=== PATIENT | male | born 1995 | race American Indian/Alaskan Native ===

== ENCOUNTER 2017-01-18 14:15 | Emergency (ER) | payer OTHER ==
--- NOTE | 2017-01-18 18:14 | Emergency Department Report ---
Upper Extremity - HPI Chief Complaint: Extremity Injury, Upper Stated Complaint: BROKEN RT HAND Time Seen by Provider: 01/18/17 18:14 Upper Extremity: Right Hand (pain and swelling. Good range of motion.) Occurred When: Today Mechanism: Other (patient hit the wall with his fist) Severity: severe (8 out of 10) Symptoms: Yes Pain with Movement (right hand), Yes Deformity (right hand), Yes Limited Range of Movement (right hand), Yes Swelling (right hand), Yes Bruising/ Ecchymosis (right hand ), No Numbness, No Weakness, No Laceration or Abrasion Other History: Patient presents here reports that he hit a wall with his right hand today and is having. Negative tenderness throbbing. He reports swelling and bruising. Denies any numbness or tingling. Denies any loss of sensation. No [id number] medication taken. ED Review of Systems ROS: Stated complaint: BROKEN RT HAND Other details as noted in HPI Comment: All other systems reviewed and negative Constitutional: denies: chills, fever Respiratory: no symptoms reported Cardiovascular: denies: chest pain, palpitations, edema, syncope Gastrointestinal: denies: nausea, vomiting Musculoskeletal: joint swelling, arthralgia. denies: back pain Skin: denies: rash Neurological: denies: headache, weakness, numbness, paresthesias, confusion, abnormal gait, vertigo ED Past Medical Hx - Past Medical History Previous Medical History?: No - Surgical History Past Surgical History?: No - Family History Family history: no significant - Social History Smoking Status: Never Smoker Substance Use Type: None - Medications Home Medications: Home Medications Medication Instructions Recorded Confirmed Last Taken Type HYDROcodone/APAP 5-325 [[place] 1 each PO Q6HR PRN #15 tablet 01/18/17 Unknown Rx 5/325] Ibuprofen [Motrin] 600 mg PO Q8H PRN #15 tablet 01/18/17 Unknown Rx Upper Extremity Exam - Exam General: Vital signs noted. No distress. Alert and acting appropriately. This is a 21-year-old male well-nourished well-developed in no acute distress. Head and Torso: No HEENT Abnormality, No Neck Tenderness, No Chest/Lungs Abnormality, No Abdominal Tenderness, No Back Tenderness Shoulder Exam: Yes Normal Range of Motion in Shoulder, No Shoulder Tenderness, No Clavicle Tenderness, No Shoulder Deformity, No AC Joint Tenderness Arm Exam: No Arm/Humerus Tenderness, No Arm Deformity Elbow: Yes Normal Range of Motion in Elbow, No Elbow Tenderness, No Elbow Deformity Forearm: No Forearm Tenderness, No Forearm Deformity, No Pain with Pronation, No Pain with Supination Wrist: Yes Normal ROM in Wrist, No Wrist Tenderness, No Wrist Deformity, No Snuffbox Tenderness, No Pain with Axial Thumb Compression Hand: Yes Hand Tenderness (right hand at fourth and fifth metacarpal carpal bone area), No Hand Deformity, No Digit Tenderness, No Normal ROM in Digit(s) ( limited range of motion to right hand.), No Digit(s) Deformity, No Tendon Dysfunction CMS Exam: Yes Normal Distal Pulses, Yes Normal Capillary Refill, Yes Normal Distal Sensation, No Broken Skin Hand L/R Back: 1 - Swelling, tenderness, swelling at fourth and fifth metacarpal bone. Tender to palpate mostly over fourth metacarpal bone area. ED Course Vital Signs 01/18/17 15:04 Temperature 98.5 F Pulse Rate 59 L Blood Pressure 118/80 O2 Sat by Pulse 100 Oximetry Vital Signs 01/18/17 01/18/17 15:04 19:39 Temperature 98.5 F Pulse Rate 59 L Respiratory 20 Rate Blood Pressure 118/80 O2 Sat by Pulse 100 Oximetry - Reevaluation(s) Reevaluation #1: 01/18/17 19:43 Patient given Percocet 5/325 2 mg in emergency room. Procedure note for splinting details. - Orthopedic Splinting/Casting Injury #1 Side: right Upper Extremity Injury Location: hand Upper Extremity Immobilizer: ulnar gutter Additional Comments: Patient with good color, movement, sensation in temperature to fingers of right hand status post ulnar gutter OCL splint placement. ED Medical Decision Making - Radiology Data Radiology results: report reviewed X-ray of right hand reveal acute comminuted intra-articular fracture fourth metacarpal bone - Medical Decision Making ED course: Patient status post splint placement for metacarpal bone fracture. See Procedure note for details. Arthralgia right hand and right hand injury secondary to punching a wall. Patient is neurovascularly pre-and post-splint placement. Discharged home with family with prescription for [place] one to follow-up with orthopedic doctor. He is given Percocet 5/325 tablets emergency room for pain. Critical care attestation.: If time is entered above; I have spent that time in minutes in the direct care of this critically ill patient, excluding procedure time. ED Disposition Clinical Impression: Arthralgia of right hand Injury of right hand Qualifiers: Encounter type: initial encounter Qualified Code(s): S69.91XA - Unspecified injury of right wrist, hand and finger(s), initial encounter Fracture of metacarpal Qualifiers: Encounter type: initial encounter Metacarpal bone: fourth Fracture type: closed Metacarpal location: base Fracture alignment: nondisplaced Laterality: right Qualified Code(s): S62.344A - Nondisplaced fracture of base of fourth metacarpal bone, right hand, initial encounter for closed fracture Disposition: DISCHARGED TO HOME OR SELFCARE Is pt being admited?: No Does the pt Need Aspirin: No Condition: Stable Instructions: Boxer Fracture (ED), Hand Fracture (ED), Arthralgia (ED) Additional Instructions: Follow-up with orthopedic doctor as instructed Please do not take [place] while driving or operating heavy machinery and 15 cause drowsiness. Prescriptions: HYDROcodone/APAP 5-325 [[place] 5/325] 1 each PO Q6HR PRN #15 tablet PRN Reason: Pain Ibuprofen [Motrin] 600 mg PO Q8H PRN #15 tablet PRN Reason: Pain Referrals: JOY MCLAUGHLIN MD [Staff Physician] - 2-3 Days Forms: Work/School Release Form(ED)
--- NOTE | 2017-01-18 18:29 | XRay Report ---
FINAL REPORT EXAM: XR HAND 3 RT HISTORY: injury TECHNIQUE: Right hand three views PRIORS: None. FINDINGS: There is acute comminuted traumatic intra-articular fracture base of the 4th metacarpal. No additional acute fractures are identified. The carpal bones maintain normal alignment. Distal radius and ulna appear intact. IMPRESSION: Acute intra-articular fracture base of the 4th metacarpal
[2017-01-18] MEDS ORDERED: PERCOCET 5/325 PO ONE (19:36)
[2017-01-18 20:51] VITALS: BP 120/80
== END 2017-01-18 20:00 | disposition home or self-care (01) ==
LOC: ED 14:15
DX: S62.344A Nondisplaced fracture of base of fourth metacarpal bone, right hand, initial encounter for closed fracture (principal); Z88.8 Allergy status to other drugs, medicaments and biological substances; W22.01XA Walked into wall, initial encounter; Y93.89 Activity, other specified; Y92.89 Other specified places as the place of occurrence of the external cause; Y99.8 Other external cause status